=== PATIENT | male | born 1965 | race African-American/Black ===

== ENCOUNTER 2021-01-15 13:14 | Emergency (ER) | payer OTHER ==
[~2021-01-15] VITALS: Ht 190.5 cm; Wt 122.5 kg
[2021-01-15 13:16] VITALS: BP 157/92
--- NOTE | 2021-01-15 13:31 | NUR ---
55 Y/O MALE C/O HIGH BP X YESTERDAY. PT STATED THAT HE HAS BEEN JOURNALING HIS BP AND IT HAS BEEN TRENDING UP THIS PAST WEEK, THE HIGHEST WAS 210/110. PT WENT TO ER YESTERDAY IN [facility] AND WAS GIVEN ANTIANXIETY MEDS. PT DENIES HEADACHE, NAUSEA, LIGHTHEADED, DIZZINESS. PT DENIES INCREASE STRESS/WEIGHT. BP 157/92 AT THIS TIME. GOT COVID VACCINE: Celtro 6 DAYS AGO. PT STATES HE HAS BEEN ON HIS HTN MEDS FOR YEARS. PT DENIES PAIN. PT AOX4, BREATHING EVEN AND UNLABORED, SKIN WARM AND DRY. BED IN LOWEST POSITION, LOCKED, BED RAIL UPX1. PMH: HTN MED: AMLIDOPINE 5 MG , ENALAPRIL 10 MG
--- NOTE | 2021-01-15 13:34 | NUR ---
MASOOD PLATT AT BEDSIDE
[2021-01-15] MEDS ORDERED: HYDR-4004 PO (13:46)
--- NOTE | 2021-01-15 14:04 | NUR ---
Patient discharged with v/s stable. Written and verbal after care instructions given and explained. Patient alert, oriented and verbalized understanding of instructions. Ambulatory with steady gait. All questions addressed prior to discharge. ID band removed. Patient advised to follow up with PMD. Rx of HYDROCHLOROTHIAZIDE given. Patient educated on indication of medication including possible reaction and side effects. Opportunity to ask questions provided and answered.
== END 2021-01-15 14:04 | disposition home or self-care (01) ==
LOC: MED 13:14
DX: I12.9 Hypertensive chronic kidney disease with stage 1 through stage 4 chronic kidney disease, or unspecified chronic kidney disease (principal); N18.4 Chronic kidney disease, stage 4 (severe)
CPT/HCPCS: 99283